=== PATIENT | male | born 1980 | race Caucasian/White ===

== ENCOUNTER → 2019-02-24 | Day surgery (SDC) | payer OTHER ==
[~2019-02-24] MED LIST: FENTANYL CITR 250 MCG/5 ML ONE; GLYCOPYRROLATE 0.2 MG/ML SYR ONE; HYDROMORPHONE HCL 1 MG/ML INJ ONE; KETOROLAC 30 MG/ML INJ ONE; LIDOCAINE 1% MPF 5 ML VIAL ONE; LIDOCAINE 1% W/EPI 1:100,000 MDV 20 ML VIAL ONE; MEPERIDINE HCL 25 MG/0.5 ML ONE; MIDAZOLAM HCL 2 MG/2 ML INJ ONE; NA CHLORIDE 0.9% 0 ML ONE; NA CHLORIDE 0.9% 500 ML ONE; NEOSTIGMINE 1 MG/ML -10 ML VIAL ONE; NS 0.9% VIAL 10 ML ONE; OXYMETAZOLINE HCL 0.05% 15ML NAS ONE; PROPOFOL 200 MG/20 ML VIAL IV ONE; Ringers Lactate 1,000 ML IV ONE; VECURONIUM 10 MG/VIAL IV ONE
[2019-02-24] MEDS: OXYMETAZOLINE HCL 0.05% 15ML NAS ONE ×4 (11:10→12:35)
--- NOTE | 2019-02-25 21:18 | OP ---
Date of Procedure: 02/24/2019 Surgeon: Merlyn Santos MD Preoperative Diagnosis: Chronic rhinosinusitis with nasal polyps. Postoperative Diagnosis: Chronic rhinosinusitis with nasal polyps. Procedures: Bilateral nasal endoscopy with maxillary antrostomy and removal of tissue from the maxil [place] sinus, total ethmoidectomy, and frontal sinusotomy with use of computer navigation extradural. Indication For Procedure: Mr. Owen is a 38-year-old with a history of significant allergies, who presented with severe nasal polyposis. He was treated with maximal medical therapy including oral st eroids and Augmentin. His postoperative CT scan demonstrated partial, but ldfrhlib-vp-vwdgfk opacifi cation of the bilateral maxillary sinuses, severe opacification of the bilateral ethmoid sinuses, and obstruction of the frontal recess likely by polyp tissue. The risks, benefits, and alternatives to the procedure were discussed with the patient who agreed to proceed. Description Of Operation: The patient was brought to the operating room. He was placed under genera l anesthesia via oral endotracheal tube. The head of bed was turned 90 degrees. The patient's nasal hairs were trimmed and the nasal cavity was packed with Afrin-soaked pledgets. The Anadys headpie ce was attached to the patient's forehead and registration was performed using the laser pointer. Af ter appropriate registration, patient's eyes were taped and the patient's face was draped in the lori dard fashion for nasal surgery. The nasal pledgets were removed and the 0-degree endoscope was used to perform a nasal endoscopy. There were large polyps coming from the middle meatus and completely o bstructing the nasal cavity on the right and obstructing approximately 50% of the nasal cavity on the left. The polyps were injected with local anesthetic. A straight Blakesley was used to grasp the p olyp at its emergent from the middle meatus and large polyps were removed from both the right and lef t side. Attention was then turned towards the maxillary sinus on the left. The uncinate process was removed using a backbiter and 90-degree Blakesley. The opening was obstructed by a polypoid tissue and polyps. This was carefully removed using the microdebrider. The maxillary sinus was filled with polyps and these were removed using a 90-degree Blakesley in conjunction with a 30 and 70 degree end oscope. The maxillary Q visor was also used to remove polyps from the sinus cavity. After removal o n the left, there were some small polyps along the roof of the sinus, but in concern for potential da mage to the orbital floor or infraorbital nerve, complete removal of these polyps was not attempted. The similar procedure was performed on the right side. There was not significant purulence noted, b ut the right maxillary sinus was likewise filled with polyps. As much of the polyp tissue as feasibl e was removed. The middle meati were packed with Afrin-soaked pledgets and attention was turned to t he ethmoid sinuses. The 0-degree endoscope was used in conjunction with the navigation suction durin g dissection of the ethmoid sinuses. Polyps and ethmoid partitions were removed using the curette an d 90-degree Blakesley which this was used of the microdebrider. The 30 degree endoscope was then use d to aid in dissection along the skull base and lamina in conjunction with the curved navigation suct ion. The frontal recess was difficult to identify visually despite use of a 70 degree endoscope and the Entellus balloon was used in order to better identify the frontal recess. In the frontal sinus c onfiguration, the balloon device was used to palpate the anterior skull base and the pathway to the f rontal recess was identified. The frontal recess was dilated and the frontal sinus thoroughly irriga cj with several aliquots of sterile saline. After removal of the balloon, the 70 degree endoscope w as used to visualize the frontal recess and the 90 degree brgns-nt-baig and fpfu-fw-dylb Giraffe forc eps were used to remove polypoid tissue and bony fragments from the frontal recess. Similar procedur e was performed on the right side. Additionally, there were polyps noted medial to the middle turbin ates, which were removed and found to be coming from the posterior aspect of the ethmoids. On the ri ght side, the middle turbinate itself was moderately polypoid in appearance, but decision was made to forego removal at this time with consideration for removal in the future pending clinical recovery. After completion of the procedure, the sinus cavities were packed with Afrin-soaked pledgets. After several minutes, these were removed. A Propel contour stent was placed in the bilateral frontal rec ess in order to aid in reduction of swelling and inflammation in the perioperative healing. A standa rd Propel stent was placed within the ethmoid cavity bilaterally. Careful examination of the maxilla ry sinuses revealed what was felt to be an adequate opening with removal of polyps and decision was m shalini to forego placement of steroid eluting stents in these sinuses. The patient did have a moderate left septal spur, but this did not seem to interfere with dissection and given the degree of polyposi s, decision was made to forego formal septoplasty. The procedure was concluded. The patient was ret urned to care of anesthesia for awakening and extubation in the operating room, which proceeded witho ut difficulty. Complications: None. Disposition: The patient will be discharged home later today in the care of his and follow up w sim Santos in 10-12 days for evaluation of healing. He is instructed to use saline irrigations 3-4 times a day starting on postoperative day #1. Future consideration is made for allergy evaluatio n given degree of polyposis and patient's history of previous allergy testing. We will discuss these options further at the patient's postoperative visits. BAO Voice ID: [id number] Report ID: [id number]
== END | disposition home or self-care (01) ==
LOC: OR 10:51
PROVIDERS: ATTEND Otolaryngology
PROC: 09TV8ZZ Resection of Left Ethmoid Sinus, Via Natural or Artificial Opening Endoscopic (ICD-10-PCS; 2019-02-24)
PROC: 09TU8ZZ Resection of Right Ethmoid Sinus, Via Natural or Artificial Opening Endoscopic (ICD-10-PCS; 2019-02-24)
PROC: 8E09XBZ Computer Assisted Procedure of Head and Neck Region (ICD-10-PCS; 2019-02-24)
PROC: 8E09XBZ Computer Assisted Procedure of Head and Neck Region (ICD-10-PCS; principal; 2019-02-24 12:15)
DX: J32.2 Chronic ethmoidal sinusitis (principal); J32.0 Chronic maxillary sinusitis; J32.1 Chronic frontal sinusitis; J33.9 Nasal polyp, unspecified; F17.220 Nicotine dependence, chewing tobacco, uncomplicated
CPT/HCPCS: 88304; 31267; 31253; 61782; J2704; J2710; J2250; J3010; J2175; J1170; J7030